=== PATIENT | female | born 1990 | race Caucasian/White ===

== ENCOUNTER 2016-05-02 01:16 | Emergency (ER) | payer OTHER ==
[~2016-05-02] VITALS: Ht 167.6 cm; Wt 50.4 kg
[~2016-05-02 01:16] MED LIST: FLEXERIL10 MG PO
[2016-05-02 03:34] LABS: ADD MIUA? YES; BILIRUBIN NEGATIVE; BLOOD MODERATE; COLOR YELLOW ((YELLOW)); GLUCOSE (STRIP) NEGATIVE; KETONES NEGATIVE; LEUKOCYTES TRACE; NITRITE NEGATIVE; PROTEIN (STRIP) TRACE; SPECIFIC GRAVITY 1.021 (1.000-1.030); UROBILINOGEN 0.2 MG/DL (0.2-1.0)
[2016-05-02 03:52] LABS: CHLORIDE 102 mEq/L (99-109); POTASSIUM 3.7 mEq/L (3.7-5.4); SODIUM 138 mEq/L (136-147)
[2016-05-02 03:55] LABS: GLUCOSE 93 mg/dL (70-99)
[2016-05-02 03:56] LABS: ANION GAP 12 MEQ/L (2-14)
[2016-05-02 03:57] LABS: TOTAL BILIRUBIN 1.2 mg/dL (0.0-1.0)
[2016-05-02 03:58] LABS: ALKALINE PHOSPHATASE 69 IU/L (3-129); GFR ESTIMATE (CALCULATED) > 59 mL/min/; HEMATOCRIT 39.5 % (36.0-46.0); MCH 30.8 PG (29.0-34.0); MCHC 34.9 G/DL (30.0-36.0); MCV 88.2 FL (83-99); MEAN PLAT.VOLUME 9.5 uM^3 (9.5-12.4); PLATELET COUNT 283 K/uL (156-360); RBC DIS.WIDTH-CV 12.2 % (11.8-14.6); RED BLOOD COUNT 4.48 M/uL (3.80-5.20); WHITE BLOOD COUNT 8.9 K/uL (4.1-10.2)
[2016-05-02 04:00] LABS: UREA NITROGEN (BUN) 10 mg/dL (9-23)
[2016-05-02 04:02] LABS: LIPASE 75 U/L (1.0-51.0)
[2016-05-02 04:07] LABS: QUANTITATIVE HCG < 4.0 MIU/ML
[2016-05-02 04:15] LABS: BACTERIA NONE SEEN; EPITHELIAL CELLS RARE; MUCUS NONE SEEN; RED BLOOD CELLS 20-30 /HPF (0-5); UCUL ADDED? NO; WHITE BLOOD CELLS 0-5 /HPF (0-5)
[2016-05-02 04:16] LABS: CALCIUM OXALATE CRYSTALS RARE; CASTS NONE SEEN /LPF; CRYSTALS PRESENT
[2016-05-02] MEDS ORDERED: ZOFRAN ODT4 MG PO (05:00)
[2016-05-02 05:30] VITALS: BP 124/70
== END 2016-05-02 06:19 | disposition home or self-care (01) ==
LOC: EME 01:16
PROVIDERS: Physician Assistant
DX: R11.2 Nausea with vomiting, unspecified (principal); R19.7 Diarrhea, unspecified; F17.200 Nicotine dependence, unspecified, uncomplicated
CPT/HCPCS: 80053; 81003; 83690; 84702; 85027; 99281; 99284; J2405; J7030; S0028